=== PATIENT | female | born 1945 | race Caucasian/White ===

== ENCOUNTER 2016-11-19 10:57 | Emergency (ER) | payer MEDICARE, OTHER ==
[~2016-11-19 10:57] MED LIST: ASPIRIN81 MG; CAL-600 W/VIT D1 TAB; CALAN SR240 MG; CENTRUM SILVER1 TA; DETROL LA4 MG; FISH OIL1 CAP; HYDROCHLOROTHIA25 MG; HYDRODIURIL; JUICE PLUS; MOBIC15 MG; NORCO 5/325 TAB1 TAB; OXYCONTIN20 MG; PEPCID AC10 MG; SENOKOT-S TABLE1 TAB; VERAPAMIL HCL240 M
[2016-11-19] MEDS ORDERED: ZOCOR20 M1 PO (11:10)
[2016-11-19] MEDS ORDERED: CALAN SR240 M1 PO (11:10)
[2016-11-19] MEDS ORDERED: MOBIC15 M2 PO (11:11)
[2016-11-19] MEDS ORDERED: OXYBUTYNIN CHLOR5 M2 PO (11:11)
[2016-11-19] MEDS ORDERED: HYDROCHLOROTHIA25 M1 PO (11:11)
[2016-11-19] MEDS ORDERED: ASPIRIN81 M1 PO (11:12)
[2016-11-19] MEDS ORDERED: CULTURELLE1 EAC1 PO (11:12)
[2016-11-19] MEDS ORDERED: CALTRATE 600 +1 EAC2 PO (11:12)
[2016-11-19] MEDS ORDERED: LOVAZA1 GM/CAP PO (11:12)
[2016-11-19] MEDS ORDERED: VITAMIN D1000 UNI2 PO (11:13)
[2016-11-19] MEDS ORDERED: PEPCID AC20 MG PO (11:13)
[2016-11-19 12:34] LABS: BASO % 0.4 % (0-2); EOS % 1.8 % (0-7); EOSINOPHIL ABSOLUTE COUNT 0.2 tho/cmm (0.0-0.7); HGB-HEMOGLOBIN 14.1 gm/dl (12.0-15.5); IMMATURE GRANULOCYTES ABSOLUTE 0.01 tho/cmm (0-0.03); IMMATURE GRANULOCYTES PERCENT 0.1 % (0-0.3); LYMPH ABSOLUTE COUNT 1.5 tho/cmm (0.8-4.5); MCH (MEAN CORPUSCULAR HGB) 28.9 pg (28.0-32.0); MCHC MEAN CORPUSCULAR HGB CONC 32.8 % (32.0-36.0); MCV (MEAN CELL VOLUME) 88.1 fl (82.0-96.0); MEAN PLATELET VOLUME 10.2 cmc (9.4-12.4); MONO % 7.9 % (0-12); MONOCYTE ABSOLUTE COUNT 0.7 tho/cmm (0.0-1.2); NEUTROPHILS % 71.8 % (40-80); PLATELET COUNT 267 tho/cmm (150-450); RED BLOOD COUNT 4.88 mil/cmm (4.00-5.20); RED CELL DISTRIBUTION WIDTH 14.1 % (12.4-16.4); WHITE BLOOD COUNT 8.3 tho/cmm (4.0-10.0)
[2016-11-19 12:35] LABS: INR 1.1 INR (0.9-1.1); PROTHROMBIN TIME 12.2 SECONDS (9.0-13.6)
[2016-11-19 13:15] LABS: ANION GAP 10 mmol/L (0-20); BLOOD UREA NITROGEN 21 mg/dl (6-24); CALCIUM 9.1 mg/dl (8.5-10.5); CARBON DIOXIDE-VENOUS 32 mmol/L (22-32); CHLORIDE 104 mmol/l (96-110); CREATININE 0.57 mg/dl (0.50-1.10); GLUCOSE 100 mg/dL (70-110); POTASSIUM 3.9 mmol/L (3.7-5.1); SODIUM 142 mmol/L (135-145); eGFR VALUE FOR BLACK >90 mL/Min
== END 2016-11-19 14:28 ==
LOC: EDMED 10:57
PROVIDERS: Emergency Medicine
DX: N95.0 Postmenopausal bleeding (principal); N83.202 Unspecified ovarian cyst, left side; N83.201 Unspecified ovarian cyst, right side; K21.9 Gastro-esophageal reflux disease without esophagitis; Z90.49 Acquired absence of other specified parts of digestive tract; R19.09 Other intra-abdominal and pelvic swelling, mass and lump

== ENCOUNTER 2016-12-23 11:53 | Day surgery (SDC) | payer MEDICARE, OTHER ==
[~2016-12-23 11:53] MED LIST changes: +ASPIRIN81 M1 PO; +CALAN SR240 M1 PO; +CALTRATE 600 +1 EAC2 PO; +CULTURELLE1 EAC1 PO; +HYDROCHLOROTHIA25 M1 PO; +LOVAZA1 GM/CAP PO; +MOBIC15 M2 PO; +OXYBUTYNIN CHLOR5 M2 PO; +PEPCID AC20 MG PO; +VITAMIN D1000 UNI2 PO; +ZOCOR20 M1 PO
[2016-12-24] MEDS ORDERED: PERCOCET 5-3251 EACH PO (07:04)
== END 2016-12-24 11:00 ==
LOC: SHSB 11:53 → ORW 13:43 → PACU 16:02 → OBGF 17:30
PROC: 0UT94ZZ Resection of Uterus, Percutaneous Endoscopic Approach (ICD-10-PCS; principal; 2016-12-23)
PROC: 0UTC4ZZ Resection of Cervix, Percutaneous Endoscopic Approach (ICD-10-PCS; 2016-12-23)
PROC: 0UT24ZZ Resection of Bilateral Ovaries, Percutaneous Endoscopic Approach (ICD-10-PCS; 2016-12-23)
PROC: 0UT74ZZ Resection of Bilateral Fallopian Tubes, Percutaneous Endoscopic Approach (ICD-10-PCS; 2016-12-23)
PROC: 8E0W4CZ Robotic Assisted Procedure of Trunk Region, Percutaneous Endoscopic Approach (ICD-10-PCS; 2016-12-23)
DX: D27.0 Benign neoplasm of right ovary (principal); D27.1 Benign neoplasm of left ovary; N80.0 Endometriosis of uterus; N84.0 Polyp of corpus uteri; N83.8 Other noninflammatory disorders of ovary, fallopian tube and broad ligament; I10 Essential (primary) hypertension; E66.01 Morbid (severe) obesity due to excess calories; M19.90 Unspecified osteoarthritis, unspecified site; K21.9 Gastro-esophageal reflux disease without esophagitis; K44.9 Diaphragmatic hernia without obstruction or gangrene; Z79.1 Long term (current) use of non-steroidal anti-inflammatories (NSAID); Z79.82 Long term (current) use of aspirin; Z79.899 Other long term (current) drug therapy; Z90.49 Acquired absence of other specified parts of digestive tract; Z98.890 Other specified postprocedural states
CPT/HCPCS: J0690; J3010; J7030; J7121